=== PATIENT | female | born 1965 | race Caucasian/White ===

== ENCOUNTER 2021-11-14 05:26 | Inpatient (IN) ==
[2021-11-14] MEDS ORDERED: MAGNESIUM SULF RIDER 2 GM/50 ML PREMIX IV PRN ×2 (07:52→07:53)
[2021-11-14] MEDS ORDERED: POTASSIUM CHLORIDE RIDER 10 MEQ/100 ML PREMIX IV PRN ×2 (07:52→07:53)
[2021-11-14] MEDS ORDERED: diphenhydrAMINE CAP 50 MG CAPSULE PO ONE (07:53)
[2021-11-14] MEDS ORDERED: DIAZEPAM 5 MG TABLET PO ONE (07:53)
[2021-11-14] MEDS ORDERED: ASPIRIN 325 MG TABLET PO ONE (07:53)
[2021-11-14 08:09] LABS: Basophils # 0.1 10*3/uL (0.0-0.2); Basophils % 0.6 % (0.0-0.8); Eosinophils # 0.4 10*3/uL (0.0-0.87); Eosinophils % 2.9 % (0.00-10.9); Hematocrit 38.6 VOL% (35.7-47.0); Hemoglobin 12.7 GM/DL (12.0-16.0); Immature Granulocytes % 0.7 %; Immature Granulocytes Absolute 0.09 #; Lymphocytes # 2.1 10*3/uL (1.4-4.0); Lymphocytes % 16.5 % (21.3-54.2); Mean Corpuscular HGB Conc 32.9 GM/DL (32-36); Mean Corpuscular Volume 91.5 FL (87-102); Mean Platelet Volume 10.7 FL (9.6-12.0); Monocytes % 7.4 % (1.7-12.7); Neutrophils % 71.9 % (38.7-73.9); Platelet Count 248 T/CUMM (130-400); Red Blood Count 4.22 MC/CUMM (3.8-5.5); Red Cell Distribution Width 13.7 % (9.3-17.3); White Blood Count 12.7 T/CUMM (4-12)
[2021-11-14] MEDS ORDERED: DIAZEPAM 5 MG TABLET ONE (08:16)
[2021-11-14] MEDS ORDERED: ASPIRIN 325 MG TABLET ONE (08:17)
[2021-11-14] MEDS ORDERED: diphenhydrAMINE CAP 50 MG CAPSULE ONE (08:17)
[2021-11-14] MEDS: SODIUM CHLORIDE 0.9% 1,000 ML IV SCH ×2 (08:19→18:53)
[2021-11-14] MEDS ORDERED: LIDOCAINE 1% 20 ML VIAL ONE (10:32)
[2021-11-14] MEDS ORDERED: fentaNYL 100 MCG/2 ML VIAL ONE (10:52)
[2021-11-14] MEDS ORDERED: MIDAZOLAM 2 MG/2 ML VIAL ONE (10:52)
[2021-11-14] MEDS ORDERED: ALTEPLASE 2 MG VIAL ONE (10:53)
[2021-11-14] MEDS ORDERED: HYDROmorphone 2 MG/1 ML VIAL ONE (11:07)
[2021-11-14 11:21] LABS: Bilirubin,Urine Negative (Negative); Blood, Urine Negative (Negative); Glucose,Urine (UA) Negative (Negative); Ketones,Urine Negative (Negative); Mucus,Urine Occasional /LPF (Occasional); Nitrite,Urine Negative (Negative); Protein,Urine Negative; RBC,Urine 1 /HPF (0-4); Squamous Epithelial Cell,Urine Occasional /HPF (0-10); Urine Appearance CLEAR (Clear); Urine Color Yellow (Yellow); Urine Specific Gravity 1.019 (1.001-1.035); Urine Urobilinogen < 2.0 EU/DL (<2.0)
[2021-11-14] MEDS ORDERED: ENOXAPARIN 60 MG/0.6 ML SYRINGE ONE (11:24)
[2021-11-14] MEDS ORDERED: ENOXAPARIN 30 MG/0.3 ML SYRINGE ONE (11:24)
[2021-11-14 11:49] LABS: Bilirubin,Total 0.6 MG/DL (0.20-1.00); Calcium 8.6 MG/DL (8.5-10.1); Osmolality,Calculated 281.3 MOS/KG (273-304); Potassium 3.7 MMOL/L (3.5-5.1); Total Protein 6.9 G/DL (6.4-8.2)
[2021-11-14] MEDS ORDERED: PROMETHAZINE 25 MG/1 ML VIAL ONE (11:55)
[2021-11-14] MEDS ORDERED: SODIUM CHLORIDE 0.9% IV SCH (11:57)
[2021-11-14] MEDS ORDERED: ALTEPLASE 12 MG in SODIUM CHLORIDE 0.9% 240 ML IV SCH (11:57)
[2021-11-14] MEDS ORDERED: SODIUM CHLORIDE 0.9% 1,000 ML IV SCH (11:57)
[2021-11-14] MEDS ORDERED: ALTEPLASE IV SCH (11:57)
[2021-11-14 12:57] LABS: INR 1.1; PT Patient Result 12.8 SECS (10.5-12.0); Partial Thromboplastin Time 39.9 SECS (23.8-32.1)
[2021-11-14] MEDS ORDERED: ENOXAPARIN 80 MG/0.8 ML SYRINGE SUBCUT ONE (13:00)
[2021-11-14] MEDS ORDERED: diphenhydrAMINE CAP 25 MG CAPSULE PO PRN (14:59)
[2021-11-14 16:22] LABS: PT Patient Result 11.4 SECS (10.5-12.0)
[2021-11-14] MEDS ORDERED: HYDROmorphone 2 MG/1 ML VIAL IV PRN (17:40)
[2021-11-14] MEDS: PANTOPRAZOLE 40 MG TABLET PO SCH (18:54)
[2021-11-14] MEDS: diphenhydrAMINE CAP 50 MG CAPSULE PO SCH (21:01)
[2021-11-14] MEDS: carvediloL 25 MG TABLET PO SCH (21:01)
[2021-11-15] MEDS: SODIUM CHLORIDE 0.9% 1,000 ML IV SCH ×2 (04:24→19:00)
[2021-11-15 05:37] LABS: Basophils % 0.4 % (0.0-0.8); Eosinophils # 0.2 10*3/uL (0.0-0.87); Eosinophils % 1.8 % (0.00-10.9); Hematocrit 37.4 VOL% (35.7-47.0); Hemoglobin 12.2 GM/DL (12.0-16.0); Immature Granulocytes % 0.5 %; Immature Granulocytes Absolute 0.06 #; Lymphocytes # 1.7 10*3/uL (1.4-4.0); Lymphocytes % 15.1 % (21.3-54.2); Mean Corpuscular HGB Conc 32.6 GM/DL (32-36); Mean Corpuscular Volume 92.1 FL (87-102); Mean Platelet Volume 9.5 FL (9.6-12.0); Monocytes % 7.8 % (1.7-12.7); Neutrophils % 74.4 % (38.7-73.9); Platelet Count 279 T/CUMM (130-400); Red Blood Count 4.06 MC/CUMM (3.8-5.5); Red Cell Distribution Width 13.1 % (9.3-17.3); White Blood Count 11.3 T/CUMM (4-12)
[2021-11-15 05:49] LABS: INR 1.1; PT Patient Result 11.9 SECS (10.5-12.0)
[2021-11-15 05:56] LABS: Calcium 8.1 MG/DL (8.5-10.1); Osmolality,Calculated 281.1 MOS/KG (273-304); Potassium 3.7 MMOL/L (3.5-5.1)
[2021-11-15 06:00] LABS: Albumin 2.6 G/DL (3.4-5.0); Bilirubin,Total 0.8 MG/DL (0.20-1.00); Calcium 8.4 MG/DL (8.5-10.1); Osmolality,Calculated 278.4 MOS/KG (273-304); Potassium 3.7 MMOL/L (3.5-5.1); Total Protein 6.2 G/DL (6.4-8.2)
[2021-11-15] MEDS: LEVOTHYROXINE 175 MCG TABLET PO SCH (08:31)
[2021-11-15] MEDS: FUROSEMIDE 40 MG TABLET PO SCH (09:20)
[2021-11-15] MEDS: ATORVASTATIN 20 MG TABLET PO SCH (09:20)
[2021-11-15] MEDS: carvediloL 25 MG TABLET PO SCH ×2 (09:20→21:36)
[2021-11-15] MEDS: POTASSIUM CHLORIDE 20 MEQ TABLET PO SCH (09:20)
[2021-11-15] MEDS: FINASTERIDE 5 MG TABLET PO SCH (09:20)
[2021-11-15 12:28] LABS: Partial Thromboplastin Time 34.2 SECS (23.8-32.1)
[2021-11-15] MEDS ORDERED: MIDAZOLAM 2 MG/2 ML VIAL ONE ×2 (13:36→15:16)
[2021-11-15] MEDS ORDERED: HYDROmorphone 2 MG/1 ML VIAL ONE (13:52)
[2021-11-15] MEDS ORDERED: ENOXAPARIN 100 MG/ML SYRINGE SUBCUT ONE (14:44)
[2021-11-15] MEDS ORDERED: ENOXAPARIN 60 MG/0.6 ML SYRINGE ONE (14:47)
[2021-11-15] MEDS ORDERED: fentaNYL 100 MCG/2 ML VIAL ONE (15:16)
[2021-11-15] MEDS ORDERED: fentaNYL 100 MCG/2 ML VIAL IV ONE (15:54)
[2021-11-15] MEDS ORDERED: MIDAZOLAM 2 MG/2 ML VIAL IV ONE (15:54)
[2021-11-15 17:27] VITALS: BP 127/99
[2021-11-15] MEDS: PANTOPRAZOLE 40 MG TABLET PO SCH (18:17)
[2021-11-15] MEDS: diphenhydrAMINE CAP 50 MG CAPSULE PO SCH (21:36)
[2021-11-16 01:03] LABS: Partial Thromboplastin Time 32.1 SECS (23.8-32.1)
[2021-11-16] MEDS: SODIUM CHLORIDE 0.9% 1,000 ML IV SCH ×2 (02:32→10:44)
[2021-11-16] MEDS: carvediloL 25 MG TABLET PO SCH (08:28)
[2021-11-16] MEDS: FINASTERIDE 5 MG TABLET PO SCH (08:28)
[2021-11-16] MEDS: POTASSIUM CHLORIDE 20 MEQ TABLET PO SCH (08:28)
[2021-11-16] MEDS: FUROSEMIDE 40 MG TABLET PO SCH (08:28)
[2021-11-16] MEDS: LEVOTHYROXINE 175 MCG TABLET PO SCH (08:28)
[2021-11-16] MEDS: ATORVASTATIN 20 MG TABLET PO SCH (08:28)
[2021-11-16] MEDS ORDERED: APIXABAN 5 MG TABLET PO SCH (09:00)
[2021-11-16] MEDS ORDERED: RIVAROXABAN 15 MG TABLET PO SCH (17:00)
== END 2021-11-16 14:50 | disposition home or self-care (01) | DRG 271 ==
LOC: N.CL 05:26 → N.CC 11:17
PROVIDERS: ADMIT Internal Medicine Cardiovascular Disease; ATTEND Internal Medicine Cardiovascular Disease
PROC: [UNRECOGNIZED PROCEDURE] (2021-11-15 15:50)

== ENCOUNTER 2022-08-01 11:12 | Observation (INO) ==
[2022-08-01] MEDS ORDERED: ONDANSETRON 4 MG/2 ML VIAL IV PRN (13:54)
[2022-08-01] MEDS ORDERED: ACETAMINOPHEN 325 MG TABLET PO PRN (13:54)
[2022-08-01] MEDS ORDERED: POTASSIUM CHLORIDE RIDER 10 MEQ/100 ML PREMIX IV PRN (13:54)
[2022-08-01] MEDS ORDERED: MAGNESIUM SULF RIDER 4 GM/100 ML PREMIX IV PRN (13:54)
[2022-08-01] MEDS ORDERED: POTASSIUM CHLORIDE 20 MEQ TABLET PO PRN (13:54)
[2022-08-01] MEDS ORDERED: MAGNESIUM SULF RIDER 2 GM/50 ML PREMIX IV PRN (13:54)
[2022-08-01 14:21] LABS: Basophils # 0.1 10*3/uL (0.0-0.2); Basophils % 0.7 % (0.0-0.8); Eosinophils # 0.2 10*3/uL (0.0-0.87); Eosinophils % 2.1 % (0.00-10.9); Hematocrit 44.4 VOL% (35.7-47.0); Hemoglobin 14.9 GM/DL (12.0-16.0); Immature Granulocytes % 0.4 %; Immature Granulocytes Absolute 0.03 #; Lymphocytes # 2.2 10*3/uL (1.4-4.0); Lymphocytes % 28.7 % (21.3-54.2); Mean Corpuscular HGB Conc 33.6 GM/DL (32-36); Mean Corpuscular Volume 90.2 FL (87-102); Mean Platelet Volume 10.1 FL (9.6-12.0); Monocytes # 0.5 10*3/uL (0.11-0.8); Monocytes % 6.1 % (1.7-12.7); Platelet Count 250 T/CUMM (130-400); Red Blood Count 4.92 MC/CUMM (3.8-5.5); Red Cell Distribution Width 13.8 % (9.3-17.3); White Blood Count 7.6 T/CUMM (4-12)
[2022-08-01] MEDS ORDERED: carvediloL 25 MG TABLET PO SCH (14:30)
[2022-08-01 14:46] LABS: Albumin 3.6 G/DL (3.4-5.0); Calcium 9.3 MG/DL (8.5-10.1); Osmolality,Calculated 277.5 MOS/KG (273-304); Potassium 3.7 MMOL/L (3.5-5.1); Total Protein 7.4 G/DL (6.4-8.2)
[2022-08-01 17:57] LABS: Bilirubin,Urine Negative (Negative); Glucose,Urine (UA) Negative (Negative); Ketones,Urine Negative (Negative); Nitrite,Urine Negative (Negative); Protein,Urine Negative (Negative); Urine Appearance Slightly Hazy (Clear); Urine Color Yellow (Yellow); Urine Specific Gravity 1.025 (1.001-1.035)
[2022-08-01 17:58] LABS: Blood, Urine Negative (Negative); Urine Urobilinogen 0.2 eU/dL (<2.0)
[2022-08-01 18:02] LABS: Mucus,Urine Occasional /LPF (Occasional); RBC,Urine 2 /HPF (0-4); Squamous Epithelial Cell,Urine Occasional /HPF (0-10)
[2022-08-01] MEDS ORDERED: ATORVASTATIN 20 MG TABLET PO SCH (21:00)
[2022-08-01] MEDS ORDERED: ENOXAPARIN 40 MG/0.4 ML SYRINGE SUBCUT SCH (21:00)
[2022-08-01] MEDS ORDERED: MELATONIN 3 MG TABLET PO SCH (21:00)
[2022-08-01] MEDS: carvediloL 25 MG TABLET PO SCH (21:49)
[2022-08-01] MEDS: DOCUSATE SODIUM 100 MG CAPSULE PO SCH (21:49)
[2022-08-02 05:11] LABS: Basophils % 0.4 % (0.0-0.8); Eosinophils # 0.2 10*3/uL (0.0-0.87); Eosinophils % 1.7 % (0.00-10.9); Hematocrit 43.7 VOL% (35.7-47.0); Hemoglobin 14.6 GM/DL (12.0-16.0); Immature Granulocytes % 0.4 %; Immature Granulocytes Absolute 0.04 #; Lymphocytes # 3.1 10*3/uL (1.4-4.0); Lymphocytes % 34.4 % (21.3-54.2); Mean Corpuscular HGB Conc 33.4 GM/DL (32-36); Mean Corpuscular Volume 90.9 FL (87-102); Mean Platelet Volume 10.4 FL (9.6-12.0); Monocytes # 0.6 10*3/uL (0.11-0.8); Monocytes % 6.3 % (1.7-12.7); Neutrophils % 56.8 % (38.7-73.9); Platelet Count 245 T/CUMM (130-400); Red Blood Count 4.81 MC/CUMM (3.8-5.5); Red Cell Distribution Width 13.7 % (9.3-17.3)
[2022-08-02 05:53] LABS: Albumin 3.5 G/DL (3.4-5.0); Bilirubin,Total 0.7 MG/DL (0.20-1.00); Osmolality,Calculated 284.1 MOS/KG (273-304); Total Protein 6.8 G/DL (6.4-8.2)
[2022-08-02] MEDS ORDERED: LEVOTHYROXINE 150 MCG TABLET PO SCH (06:30)
[2022-08-02 08:09] VITALS: BP 127/67
[2022-08-02] MEDS: carvediloL 25 MG TABLET PO SCH (08:51)
[2022-08-02] MEDS: DOCUSATE SODIUM 100 MG CAPSULE PO SCH (08:51)
[2022-08-02] MEDS ORDERED: PANTOPRAZOLE 40 MG TABLET PO SCH (09:00)
[2022-08-02] MEDS ORDERED: FUROSEMIDE 40 MG TABLET PO SCH (09:00)
== END 2022-08-02 11:07 | disposition home or self-care (01) ==
LOC: N.MMA.FM 11:12 → INTOOBSV 12:43 → N.TELEN 12:43
PROVIDERS: ADMIT Family Medicine; ATTEND Family Medicine